=== PATIENT | male | born 2000 | race Caucasian/White ===

== ENCOUNTER 2021-05-13 18:12 | Emergency (ER) | payer OTHER ==
[2021-05-13 20:17] LABS: HEMOGLOBIN 15.6 gm/dl (14.0-17.5); RED BLOOD COUNT 5.05 M/UL (4.20-5.50); WHITE BLOOD COUNT 4.8 K/UL (4.5-11.0)
[2021-05-13 21:00] LABS: BUN/CREATININE RATIO 17 (0-10)
== END 2021-05-13 22:30 | disposition home or self-care (01) ==
LOC: ER1 18:12
PROVIDERS: Physician Assistant
DX: F41.9 Anxiety disorder, unspecified (principal); R07.9 Chest pain, unspecified; Z88.5 Allergy status to narcotic agent
CPT/HCPCS: 71045; 80053; 82550; 82553; 83874; 84484; 85025; 99285